=== PATIENT | male | born 1950 | race Caucasian/White ===

== ENCOUNTER 2016-10-28 07:53 | Inpatient (IN) | payer MEDICARE, BC ==
[~2016-10-28] VITALS: Ht 172.7 cm; Wt 93.0 kg
[2016-10-28] VITALS (17 sets, daily range): BP systolic 117–158; BP diastolic 76–104
[2016-10-28] MEDS ORDERED: ALLO300T PO (09:20)
[2016-10-28] MEDS ORDERED: OMEP20TA8 PO (09:22)
[2016-10-28] MEDS ORDERED: RIVA20TA2 PO (09:22)
[2016-10-28] MEDS ORDERED: NALO4SPR NS (09:22)
[2016-10-28] MEDS ORDERED: CARV12.52 PO (09:23)
[2016-10-28] MEDS ORDERED: ALPR0.5T6 PO (09:23)
[2016-10-28] MEDS ORDERED: INDO50CA PO (09:24)
[2016-10-28] MEDS ORDERED: OXYC-328 PO (09:25)
[2016-10-28 09:37] LABS: BASO % 1 % (0-3); EOS # 0.1 x10^3/uL (0.0-0.7); EOS % 2 % (0-3); HEMATOCRIT 43.6 % (39.0-53.0); LYMPH # 1.1 x10^3/uL (1.0-4.8); LYMPH % 32 % (24-48); MEAN CORPUSCULAR HEMOGLOBIN 34 pg (25-35); MEAN CORPUSCULAR HGB CONC 35 g/dL (31-37); MEAN CORPUSCULAR VOLUME 98 fL (79-100); MONO # 0.6 x10^3/uL (0.0-1.1); MONO % 18 % (0-9); NEUT # 1.6 x10^3uL (1.8-7.7); NEUT % 47 % (31-73); PLATELET COUNT 112 x10^3/uL (140-400); RED BLOOD COUNT 4.45 x10^6/uL (4.30-5.70); RED CELL DISTRIBUTION WIDTH 14.6 % (11.5-14.5); WHITE BLOOD COUNT 3.3 x10^3/uL (4.0-11.0)
[2016-10-28] MEDS: SOTALOL 120 MG PO SCH ×2 (09:37→21:01)
[2016-10-28 09:50] LABS: CALCIUM 8.4 mg/dL (8.5-10.1); CREATININE 1.2 mg/dL (0.7-1.3); GFR 60.2; POTASSIUM 4.5 mmol/L (3.5-5.1)
[2016-10-28] MEDS ORDERED: oxyCODONE/APAP 10/325 1 TAB TABLET PO SCH ×4 (11:00→17:00)
--- NOTE | 2016-10-28 12:22 | PDOC2 ---
ROCKY TORRES [employer] WORK[employer] 10/28/16 1222: CONSULT Date of Admission DATE: 10/28/16 TIME: 12:01 Reason for Consult: Persistent atrial fibrillation History of Present Illness This is a 66 year old male who presented for admission due to persistent atrial fibrillation and need to start sotalol. He has a history of aneurysmal dilatation of the ascending aorta, which measures 4.5 cm in diameter and mild enlargement of the aortic root, which measures 4.3 cm in diameter, paroxysmal atrial fibrillation, and hypertension. He was placed on Multaq in August for 4 weeks and Did not convert so was sent in for electrical cardioversion. It was successful at the hospital but at his return follow-up visit he was back in atrial fibrillation. He had been having increased amounts of alcohol and wanted to try to stop drinking and recheck his EKG in 1 month. He continued to be in atrial fibrillation and admission was planned to start sotalol. Last week he presented to the clinic with complaints of chest pain that were not related to activity. It was a sudden onset sensation that comes into the substernal area and then radiates up into his chest it does not go into his neck or into his arm. It is not associated with any shortness of breath, nausea , vomiting or diaphoresis. Nothing seems to make it better or worse and it lasts about 5 minutes and then spontaneously abates. In the past he has associated this pain with his shoulder and back pain. He underwent a nuclear stress test that showed normal perfusion. Past Medical History Hypertension: Y Valvular Heart Disease: Y Aneurysmal dilatation of the ascending aorta, which measures 4.5 cm in diameter and mild enlargement of the aortic root, which measures 4.3 cm in diameter Paroxysmal atrial fibrillation Surgical History Shoulder surgery procedure Back Surgery Family History - Family history of coronary artery disease, diabetes mellitus and cancer. Social History Occupation: Retired, Works part-time at a camp ground Marital status: Live alone or with others?: with others Number of children: 6 Diet: Regular Exercise level: Moderate Smoking Status: Former smoker (Notes: Quit 1971) Smoker (2 PPD) Tobacco-years of use: 3 Alcohol intake: Moderate (Notes: 24 pack a week) Caffeine intake: Occasional Allergies - PENICILLINS Medications allopurinol 300 mg tablet once daily ALPRAZolam 0.5 mg tablet PRN oxyMORphone ER 30 mg tablet,crush resistant,extended release 12 hr PRN Xarelto 20 mg tablet once daily Recently stopped - lisinopril, Coreg, Multaq, Lasix, and potassium. Review of systems-review of 10 organ systems is negative except for as in HPI. Physical Exam GENERAL: This is a well developed, well nourished male. No apparent distress. SKIN: Warm and dry with normal skin turgor. Negative for pallor. No lesions or rashes noted. EYES: Conjunctiva are clear. Extraocular movements are intact. No xanthelasma. HEAD AND NECK: Oral mucosa is moist. There is no cyanosis. Neck is supple. Jugular venous pressure is flat. Carotid pulses are 2/2 bilaterally. No carotid bruits. There is no obvious thyromegaly. HEART: Regular rate and irregular rhythm. Normal S1 and S2. No S3. No S4. + Diastolic murmur LUNGS: Effort is good. There is symmetric expansion bilaterally. Clear to auscultation bilaterally. No wheezes. No crackles. No rhonchi. ABDOMEN: Normal active bowel sounds. Soft. Nontender. EXTREMITIES: No clubbing. No cyanosis. edema right > left MUSCULOSKELETAL: No kyphosis. No scoliosis. No localized tenderness or stiffness. Gait appears normal. NEUROLOGIC: Alert and oriented times three. Cranial nerves III-XII are grossly intact. Good motor tone and strength in the upper and lower extremities bilaterally. PSYCHOLOGIC: This is a pleasant patient with a normal affect. Procedure Documentation LEXISCAN NUCLEAR STRESS TEST IMPRESSION (10/23/2016): Normal myocardial perfusion scan The summed stress score is one. Mild LV systolic dysfunction. Ejection fraction: 48%. There is no stress induced left ventricular dilatation or increase in lung to heart ratio. There was no stress induced chest pain. There was baseline atrial fibrillation that did not change with stress. No previous study available for comparison. CARDIOVERSION IMPRESSION (08/20/2016): Successful DC cardioversion from atrial fibrillation to normal sinus rhythm with a single 200 joule synchronized shock. ECHOCARDIOGRAM IMPRESSION (06/19/2016):. The patient was in atrial fibrillation with fairly rapid ventricular 100 beats per minute There is mild to moderate left ventricular systolic dysfunction with a visually estimated ejection fraction of 40%. Note ejection fraction calculation may be affected by atrial fibrillation The left ventricular diastolic function could not be determined on this study. The aortic root appears moderately dilated at 4.3 cm. The proximal ascending aorta appears moderately dilated at 4.5 cm. Compared to the report (images were not available for review) of the study dated 01/09/2016, the ejection fraction has decreased. EVENT MONITOR 06/20/2016: 1. Baseline atrial fibrillation with an average heart rate of 95 beats per minute, ranging from 60 to 195 beats per minute with rare ventricular ectopy as both isolated and couplets versus aberrant conduction of the atrial fibrillation. 2. There were 2 patient triggered events during which times the patient was in atrial fibrillation. 3. No symptoms appear to have been reported during the test. ECHOCARDIOGRAM IMPRESSION (01/09/2016):. The aortic root appears moderately dilated at 4.3 cm. The proximal ascending aorta appears moderately dilated at 4.4 cm. Compared to the report (images were not available for review) of the study dated 06/15/2015, there is no significant change. ECHOCARDIOGRAM IMPRESSION (06/15/2015):. The left ventricle is normal in size. There is mild to moderate concentric left ventricular hypertrophy. No significant regional wall motion abnormalities are identified. The left ventricular systolic function is normal with an estimated ejection fraction of 55-60%. There is evidence of impaired left ventricular relaxation suggestive of stage I diastolic dysfunction. The aortic root appears mildly dilated at 4.2 cm. The proximal ascending aorta appears moderately dilated at 4.4 cm. There is mild to moderate aortic regurgitation. The estimated pulmonary artery systolic pressure is normal at 21 mmHg. Compared to the report (images were not available for review) of the study dated 06/13/2014, there is no significant change. ECHOCARDIOGRAM IMPRESSION (06/13/2014): This is a technically difficult study due to poor image quality. The left ventricle is normal in size. There is normal left ventricular wall thickness. No significant regional wall motion abnormalities are identified. The left ventricular systolic function is normal with an estimated ejection fraction of 55%. There is evidence of decreased diastolic compliance of the left ventricle, consistent with mild left ventricular diastolic dysfunction. The aortic root appears mildly dilated at 4.2 cm. The proximal ascending aorta appears mildly dilated at 4.3 cm. There is mild aortic regurgitation. The estimated pulmonary artery systolic pressure is normal at 19 mmHg. Compared to the report (images were not available for review) of the study dated 06/07/2013, there is no significant change. ABDOMINAL AORTA / ILIAC IMAGING IMPRESSION (07/02/13). There is mild atherosclerotic plaquing of the abdominal aorta and the iliacs There is no evidence of abdominal aortic aneurysm or iliac artery aneurysm ECHOCARDIOGRAM IMPRESSION (06/07/2013):. 1. Normal left ventricular systolic function with a visually estimated ejection fraction of 55% to 60%. 2. Mild diastolic dysfunction with impaired relaxation. 3. There is borderline concentric left ventricular hypertrophy. 4. There is mild aortic regurgitation. 5. There is aneurysmal dilatation of the ascending aorta, which measures 4.4 cm in diameter. There is mild enlargement of the aortic root, which measures 4.2 cm in diameter. SUMMARY OF NUCLEAR STRESS TEST(10/23/11):. The patient did not complain of chest pain. Stress ECG: There were no significant stress induced ECG changes. Exercised for 9:14 minutes by Eric protocol. Valdez score was 9. Perfusion SPECT imaging revealed normal perfusion without evidence of infarction or ischemia. The ejection fraction was 51% and the wall motion was low normal. Compared to previous study on 09/18/10, there was no significant change. Assessment / Plan Atrial fibrillation, persistent - He stopped his Multaq last week. Will plan on changing Coreg to sotalol 120 mg twice a day and monitoring with serial EKGs. If he has not converted by Friday will plan to do electrical cardioversion prior to discharge. Systolic dysfunction - likely related to rapid atrial fibrillation. Plan to repeat limited echocardiogram as an outpatient once sinus rhythm is reestablished. Aneurysmal dilatation of the ascending aorta, which measures 4.5 cm in diameter by echocardiogram and measures 4.[address] scan the last several years. Stable aneurysm. We will continue to monitor by yearly CT and when he gets to 5 centimeters will plan for CTS evaluation. He should avoid heavy lifting, holding his breath, or Valsalva maneuver. Continue beta-jackson and aggressive blood pressure control Mild - Moderate Aortic regurgitation - Monitor blood pressure and continue current therapy. Essential Hypertension with Left ventricular hypertrophy. Controlled. recently his blood pressure has been running low and his lisinopril was stopped and his carvedilol was decreased. Multiple pulmonary nodules -- Being watched at [facility] with CT scans every 6 - 12 months. Recent DVT on Xarelto Obesity. Lifestyle modification with exercise, diet and weight loss recommended. Current Medications Current Medications Sotalol HCl (Betapace) 120 mg BID PO Last administered on 8/7/17at 09:37; Start 10/28/16 at 09:00 Oxycodone/ Acetaminophen (Percocet 10/325) 1.5 tab DAILY@0700,1100,1700 PO ; Start 10/28/16 at 17:00; Stop 10/28/16 at 17:00; Status DC Oxycodone/ Acetaminophen (Percocet 10/325) 1.5 tab DAILYBFRLUN PO ; Start at 11:30; Status UNV Oxycodone/ Acetaminophen (Percocet 10/325) 1 tab DAILY@0300,1600 PO ; Start 10/28 at 16:00 Oxycodone/ Acetaminophen (Percocet 10/325) 1.5 tab DAILYWSUP PO ; Start 10/28/16 at 17:00; Status UNV Oxycodone/ Acetaminophen (Percocet 10/325) 1 tab DAILY PO ; Start 10/29/16 at 03: 00; Status UNV Oxycodone/ Acetaminophen (Percocet 10/325) 1.5 tab DAILY@0700,1100,1700 PO Last administered on 10/28/16t 11:33; Start 10/28/16 at 11:00 Allopurinol (Zyloprim) 300 mg DAILY PO ; Start 10/29/16 at 09:00 Alprazolam (Xanax) 0.5 mg PRN Q8HRS PRN PO ANXIETY / AGITATION; Start 10/28/16 at 11:45 Pantoprazole Sodium (Protonix) 40 mg DAILYAC PO ; Start 10/29/16 at 07:30 Rivaroxaban (Xarelto) 20 mg DAILY PO ; Start 10/29/16 at 09:00 Active Scripts Active Reported Percocet 10-325 Mg Tablet (Oxycodone Hcl/Acetaminophen) 1 Each Tablet 1 Tab PO PRN Q8HRS PRN Indomethacin 50 Mg Capsule 50 Mg PO PRN DAILY PRN Alprazolam 0.5 Mg Tablet 0.5 Mg PO PRN Q8HRS PRN Xarelto (Rivaroxaban) 20 Mg Tablet 20 Mg PO DAILY Omeprazole 20 Mg Tablet.dr 20 Mg PO DAILY Narcan (Naloxone HCl) 4 Mg Mcneal 4 Mg NS Allopurinol 300 Mg Tablet 1 Tab PO DAILY Allergies: Coded Allergies: Penicillins (Verified Allergy, Unknown, 10/28/16) VITALS Vital Signs Date Time Temp Pulse Resp B/P (MAP) Pulse Ox O2 Delivery O2 Flow Rate FiO2 10/28/16 10:45 98.6 74 20 122/80 (94) 98 Room Air Labs Laboratory Tests Test 10/28/16 09:10 White Blood Count 3.3 x10^3/uL (4.0-11.0) Red Blood Count 4.45 x10^6/uL (4.30-5.70) Hemoglobin 15.0 g/dL (13.0-17.5) Hematocrit 43.6 % (39.0-53.0) Mean Corpuscular Volume 98 fL (79-100) Mean Corpuscular Hemoglobin 34 pg (25-35) Mean Corpuscular Hemoglobin Concent 35 g/dL (31-37) Red Cell Distribution Width 14.6 % (11.5-14.5) Platelet Count 112 x10^3/uL (140-400) Neutrophils (%) (Auto) 47 % (31-73) Lymphocytes (%) (Auto) 32 % (24-48) Monocytes (%) (Auto) 18 % (0-9) Eosinophils (%) (Auto) 2 % (0-3) Basophils (%) (Auto) 1 % (0-3) Neutrophils # (Auto) 1.6 x10^3uL (1.8-7.7) Lymphocytes # (Auto) 1.1 x10^3/uL (1.0-4.8) Monocytes # (Auto) 0.6 x10^3/uL (0.0-1.1) Eosinophils # (Auto) 0.1 x10^3/uL (0.0-0.7) Basophils # (Auto) 0.0 x10^3/uL (0.0-0.2) Sodium Level 140 mmol/L (136-145) Potassium Level 4.5 mmol/L (3.5-5.1) Chloride Level 104 mmol/L (98-107) Carbon Dioxide Level 29 mmol/L (21-32) Anion Gap 7 (6-14) Blood Urea Nitrogen 17 mg/dL (8-26) Creatinine 1.2 mg/dL (0.7-1.3) Estimated GFR (Cockcroft-Gault) 60.2 Glucose Level 100 mg/dL (70-99) Calcium Level 8.4 mg/dL (8.5-10.1) Creatine Kinase 149 U/L (39-308) Creatine Kinase MB (Mass) 2.6 ng/mL (0.0-3.6) Creatine Kinase MB Relative Index 1.7 % (0-4) Troponin I Quantitative < 0.017 ng/mL (0-0.055) SUNNY VICTORIA Jr, MD 10/28/16 1522: CONSULT Reason for Consult: Atrial fibrillation Chief Complaint Admission to start sotalol. Source: Patient History of Present Illness He is a 66-year-old male with a history of what seems to be asymptomatic persistent atrial fibrillation. He was treated previously placed on Multaq and then had a cardioversion. However, the atrial fibrillation recurred. Therefore , we elected to admit him to the hospital to start sotalol. We stopped his Multaq approximately 4 days ago. He has chronic intermittent chest pain. He describes this as both a sharp and a tight feeling in the center of his chest that occurs mainly with exertion. He denies radiation or associated symptoms. This is mild. This may last up to 15 minutes. If this starts when he is exerting himself, he just keeps moving on and ultimately the discomfort will resolve. This may have been getting slightly more frequent over the past several weeks. He has mild intermittent bilateral lower extremity edema. He denies dyspnea, paroxysmal nocturnal dyspnea, orthopnea, palpitations, lightheadedness or syncope. Allergies: Coded Allergies: Penicillins (Verified Allergy, Unknown, 10/28/16) Review of System Review of 10 organ systems is as per the history of present illness, otherwise negative. General: Alert, Oriented X3, Cooperative, No acute distress HEENT: Atraumatic, EOMI, Mucous membr. moist/pink Lungs: Clear to auscultation, Normal air movement Heart: Normal S1, Normal S2, Other (Irregularly irregular. 2/6 systolic ejection murmur.) Abdomen: Normal bowel sounds, Soft, No tenderness, No hepatospenomegaly Extremities: No clubbing, No cyanosis, No edema, Normal pulses Skin: No rashes, No breakdown, No significant lesion Neuro: Normal gait, Normal speech, Strength at 5/5 X4 ext, Normal tone, Cranial nerves 3-12 NL Psych/Mental Status: Mental status NL, Mood NL Assessment/Plan Atrial fibrillation, persistent. He is here today to start sotalol. We will stop the other beta-jackson since he will be starting on sotalol. We will continue his oral anticoagulant. We will monitor the QT interval. If he remains in atrial fibrillation on Friday, we may need to consider a cardioversion in. Cardiomyopathy. This is likely nonischemic and possibly related to his atrial fibrillation with previous rapid ventricular rate. Unfortunately, due to low blood pressures, we had to discontinue his beta-jackson and SINA-inhibitor. Once he is back in a sinus rhythm, we will see if we can reintroduce these medications. Essential hypertension. As above, we need to make some adjustments to his medication due to low blood pressures. We will see if this will improve after he is back in sinus rhythm. Thoracic aortic aneurysm. This is mild. This will need to be followed with serial imaging approximately once per year. Problems: ROCKY TORRES APRN Oct 28, 2016 12:22 SUNNY VICTORIA Jr, MD Oct 28, 2016 15:22
[2016-10-28] MEDS ORDERED: LORazepam 1 MG TABLET PO PRN ×2 (15:00)
[2016-10-28] MEDS: ALPRAZolam 0.5 MG TABLET PO PRN (16:20)
[2016-10-28] MEDS: oxyCODONE/APAP 10/325 1 TAB TABLET PO SCH ×2 (16:21→19:56)
[2016-10-29] VITALS (23 sets, daily range): BP systolic 119–169; BP diastolic 79–104
[2016-10-29] MEDS: oxyCODONE/APAP 10/325 1 TAB TABLET PO SCH ×5 (02:48→19:50)
[2016-10-29] MEDS ORDERED: oxyCODONE/APAP 10/325 1 TAB TABLET PO SCH (03:00)
[2016-10-29] MEDS ORDERED: RANI150C PO (03:57)
--- NOTE | 2016-10-29 05:11 | ACF ---
Admission Criteria Forms ATRIAL FIBRILLATION Clinical Indications for Admission to Inpatient Care (Place 'X' for any and all applicable criteria): Admission indicated for ANY ONE of the following(1)(2)(3)(4)(5) : [ ]I. Myocardial ischemia [ ]II. Dyspnea or hypoxemia [ ]III. Hemodynamic instability [ ]IV. Heart failure (e.g., pulmonary edema) (7) [ ]V. New-onset (less than 48 hours) atrial fibrillation with high risk for causing complications secondary to comorbidities (eg, symptomatic heart failure ) [ ]. Altered mental status [ ]VII. Syncope [ ]VIII. Patient has implantable cardioverter defibrillator that has fired more than once within past 24hr or needs immediate adjustment of settings that cannot be done other than in inpatient setting. (8) [ ]IX. Suspected accessory pathway (e.g., Xujic-Vomnbjjis-Adgen syndrome) on ECG [ ]X. Recent systemic thromboembolism (eg, stroke) [ ]XI. Medication toxicity (e.g., digitalis) causing arrhythmia(9) [ ]XII. Underlying medical condition that necessitates inpatient care (e.g., thyrotoxicosis, pneumonia) (10) [x]XIII. Continuous ECG monitoring is required for condition causing arrhythmia (e.g., severe hyperkalemia, hypokalemia, acid-base disturbance).(11)(12)(13) [ ]XIV. Initiation of antiarrhythmic drug therapy is needed in patient at high risk of adverse effects as indicated by ANY ONE of the following: [ ]a) Significant structural heart disease (e.g., reduced ejection fraction, congenital heart disease, valvular heart disease) [ ]b) Prolonged QT interval [ ]c) Underlying sinus node or atrioventricular conduction disturbances [ ]d) Need for treatment with antiarrhythmic drugs that have significant proarrhythmic potential (e.g., dofetilide, sotalol, procainamide) [ ]e) Patient whose sinus rhythm has never been observed on ECG [ ]XV. Intolerable symptoms despite optimal outpatient treatment [ ]XVI. Elective or urgent cardioversion that cannot be performed on outpatient basis or during observation care. [A] (Use also Atrial Fibrillation: Observation Care ) as appropriate.(14) [ ]XVII.Contraindications and/or Inappropriate clinical situations for Observational Care in patients with Atrial Fibrillation, when ANY ONE of the following is required: [ ]a) Patient with High risk of cardiac embolism (e.g, patients with previous cardiac embolism, LVEF < 40%, age >75 and patients with prosthetic valve) 18 [ ]b) Patient with Moderate risk including DM patient, CAD and patient aged 65-75 18 [ ]c) Patient with any change in cardiac biomarker especially troponin should be managed as high risk in an inpatient setting 19 [ ]d) Physician judgement irrespective of ECG and other diagnostic findings 20 [ ]XVIII.General contraindications and/or Inappropriate clinical situations for Observational Care in patients with Atrial Fibrillation, when ANY ONE of the following is required: [ ]a) Prediction of prolongation of LOS based on ANY ONE of the following may be considered as a contraindication for observational care 2, 3, 4, 5, 6, 7, 8, 9, 10, 11 [ ]i) Age > 65 yrs. [ ]ii) Patient arriving by ambulance [ ]iii) Patient with high acuity [ ]iv) Patient requiring vital sign monitoring [ ]v) Patient on IV medication [ ]b) Systolic blood pressures 180mmHg 3,12 [ ]c) Patient with altered mental status including delirium and other alteration of consciousness3 [ ]d) Patient whose discharge disposition will be to a fpc home or rehabilitation home should not be managed in Emergency Department Observation Unit. CMS rule requires 3 days hospital stay before such placement.3,13 [ ]e) Patient with failure to thrive due to broad array of etiologies 3,16,17 [ ]f) Inability to ambulate 3,14 Extended stay beyond goal length of stay may be needed for (1)(25)(26): [ ]a) Unstable comorbidities [ ]b) Persistently uncontrolled atrial fibrillation or other arrhythmias [ ]c) Acute thromboembolic event (e.g., stroke, limb ischemia) [ ]d) Need for inpatient attainment of full anticoagulation The original [employer] content created by [employer] has been revised. The portions of the content which have been revised are identified through the use of italic text or in bold, and [employer] [facility] [employer] has neither reviewed nor approved the modified material. All other unmodified content is copyright [employer]. Please see references footnoted in the original [employer] [facility] edition 2016 Admission Criteria Met?: Yes GENOVEVA PINZON Oct 29, 2016 05:11
[2016-10-29] MEDS: PANTOPRAZOLE 40 MG TABLET. PO SCH (07:20)
[2016-10-29] MEDS: RIVAROXABAN 10 MG TABLET. PO SCH (08:07)
[2016-10-29] MEDS: ALLOPURINOL 300 MG TABLET. PO SCH (08:07)
[2016-10-29] MEDS: SOTALOL 120 MG PO SCH ×2 (08:07→21:22)
[2016-10-29 08:59] LABS: ALBUMIN 3.6 g/dL (3.4-5.0); ALBUMIN/GLOBULIN RATIO 1.1 (1.0-1.7); CALCIUM 8.6 mg/dL (8.5-10.1); CREATININE 1.2 mg/dL (0.7-1.3); GFR 60.2; POTASSIUM 4.2 mmol/L (3.5-5.1); TOTAL BILIRUBIN 1.3 mg/dL (0.2-1.0); TOTAL PROTEIN 6.8 g/dL (6.4-8.2)
--- NOTE | 2016-10-29 12:56 | PDOC ---
ROCKY TORRES [employer]CH[employer]IC 10/29/16 1255: PROGRESS NOTES Assessment We are seeing the patient for atrial fibrillation Atrial fibrillation, persistent - He is tolerating the sotalol 120 twice a day well. His QTC remains normal. He has yet to convert so we will plan to make him NPO after midnight and do electrical cardioversion tomorrow under conscious sedation. he is on Xarelto for anticoagulation. Systolic dysfunction - likely related to rapid atrial fibrillation. Plan to repeat limited echocardiogram as an outpatient once sinus rhythm is reestablished. Essential Hypertension with Left ventricular hypertrophy. Controlled. recently his blood pressure has been running low and his lisinopril was stopped and his carvedilol was decreased. Continue to monitor. Aneurysmal dilatation of the ascending aorta, which measures 4.5 cm in diameter by echocardiogram and measures 4.[address] scan the last several years. Stable aneurysm. We will continue to monitor by yearly CT and when he gets to 5 centimeters will plan for CTS evaluation. He should avoid heavy lifting, holding his breath, or Valsalva maneuver. Continue beta-jackson and aggressive blood pressure control Mild - Moderate Aortic regurgitation - Monitor blood pressure and continue current therapy. Problems: Subjective We discussed treatment options if the sotalol does not work. He denies any problems with chest pain, shortness of breath or palpitations. Objective Vital Signs Date Time Temp Pulse Resp B/P (MAP) Pulse Ox O2 Delivery O2 Flow Rate FiO2 10/29/16 11:48 68 18 128/90 (103) 96 Room Air 10/29/16 10:31 97.8 Intake and Output 10/29/16 07:00 Intake Total 1750 ml Output Total 2375 ml Balance -625 ml Intake Oral 1750 ml Output Urine Total 2375 ml # Voids 1 Abdomen: Normal bowel sounds, Soft, No tenderness Heart: Regular rate, Normal S1, Normal S2 (irregular rhythm ) Extremities: No edema, Normal pulses General: Oriented X3 HEENT: EOMI Lungs: Clear to auscultation Psych/Mental Status: Mental status NL, Mood NL Review of Relevant I have reviewed the following items lisbet (where applicable) has been applied. Labs Laboratory Tests Test 10/28/16 09:10 10/29/16 08:37 White Blood Count 3.3 x10^3/uL (4.0-11.0) Red Blood Count 4.45 x10^6/uL (4.30-5.70) Hemoglobin 15.0 g/dL (13.0-17.5) Hematocrit 43.6 % (39.0-53.0) Mean Corpuscular Volume 98 fL (79-100) Mean Corpuscular Hemoglobin 34 pg (25-35) Mean Corpuscular Hemoglobin Concent 35 g/dL (31-37) Red Cell Distribution Width 14.6 % (11.5-14.5) Platelet Count 112 x10^3/uL (140-400) Neutrophils (%) (Auto) 47 % (31-73) Lymphocytes (%) (Auto) 32 % (24-48) Monocytes (%) (Auto) 18 % (0-9) Eosinophils (%) (Auto) 2 % (0-3) Basophils (%) (Auto) 1 % (0-3) Neutrophils # (Auto) 1.6 x10^3uL (1.8-7.7) Lymphocytes # (Auto) 1.1 x10^3/uL (1.0-4.8) Monocytes # (Auto) 0.6 x10^3/uL (0.0-1.1) Eosinophils # (Auto) 0.1 x10^3/uL (0.0-0.7) Basophils # (Auto) 0.0 x10^3/uL (0.0-0.2) Nasal Screen MRSA (PCR) Negative (Negative) Sodium Level 140 mmol/L (136-145) 141 mmol/L (136-145) Potassium Level 4.5 mmol/L (3.5-5.1) 4.2 mmol/L (3.5-5.1) Chloride Level 104 mmol/L (98-107) 104 mmol/L (98-107) Carbon Dioxide Level 29 mmol/L (21-32) 32 mmol/L (21-32) Anion Gap 7 (6-14) 5 (6-14) Blood Urea Nitrogen 17 mg/dL (8-26) 14 mg/dL (8-26) Creatinine 1.2 mg/dL (0.7-1.3) 1.2 mg/dL (0.7-1.3) Estimated GFR (Cockcroft-Gault) 60.2 60.2 Glucose Level 100 mg/dL (70-99) 161 mg/dL (70-99) Calcium Level 8.4 mg/dL (8.5-10.1) 8.6 mg/dL (8.5-10.1) Creatine Kinase 149 U/L (39-308) Creatine Kinase MB (Mass) 2.6 ng/mL (0.0-3.6) Creatine Kinase MB Relative Index 1.7 % (0-4) Troponin I Quantitative < 0.017 ng/mL (0-0.055) BUN/Creatinine Ratio 12 (6-20) Total Bilirubin 1.3 mg/dL (0.2-1.0) Aspartate Amino Transf (AST/SGOT) 24 U/L (15-37) Alanine Aminotransferase (ALT/SGPT) 23 U/L (16-63) Alkaline Phosphatase 87 U/L (46-116) Total Protein 6.8 g/dL (6.4-8.2) Albumin 3.6 g/dL (3.4-5.0) Albumin/Globulin Ratio 1.1 (1.0-1.7) Medications Current Medications Sotalol HCl (Betapace) 120 mg BID PO Last administered on 10/29/16 08:07; Start 10/28/16 at 09:00 Oxycodone/ Acetaminophen (Percocet 10/325) 1.5 tab DAILY@0700,1100,1700 PO ; Start 10/28/16 at 17:00; Stop 10/28/16 at 17:00; Status DC Oxycodone/ Acetaminophen (Percocet 10/325) 1.5 tab DAILYBFRLUN PO ; Start at 11:30; Status UNV Oxycodone/ Acetaminophen (Percocet 10/325) 1 tab DAILY@0300,1600 PO Last administered on 10/29/16 02:48; Start 10/28/16 at 16:00 Oxycodone/ Acetaminophen (Percocet 10/325) 1.5 tab DAILYWSUP PO ; Start 10/28/16 at 17:00; Status UNV Oxycodone/ Acetaminophen (Percocet 10/325) 1 tab DAILY PO ; Start 10/29/16 at 03: 00; Status UNV Oxycodone/ Acetaminophen (Percocet 10/325) 1.5 tab DAILY@0700,1100,1700 PO Last administered on 10/28/16 11:33; Start 10/28/16 at 11:00; Stop 10/28/16 at 16: 17; Status DC Allopurinol (Zyloprim) 300 mg DAILY PO Last administered on 10/29/16 08:07; Start 10/29/16 at 09:00 Alprazolam (Xanax) 0.5 mg PRN Q8HRS PRN PO ANXIETY / AGITATION Last administered on 10/28/16 16:20; Start 10/28/16 at 11:45 Pantoprazole Sodium (Protonix) 40 mg DAILYAC PO Last administered on 10/29/16 07:20; Start 10/29/16 at 07:30 Rivaroxaban (Xarelto) 20 mg DAILY PO Last administered on 10/29/16 08:07; Start 10/29/16 at 09:00 Lorazepam (Ativan) 4 mg PRN Q1HR PRN PO For CIWA 8-14; Start 10/28/16 at 15:00 Lorazepam (Ativan) 8 mg PRN Q1HR PRN PO For CIWA 15 or greater; Start 10/28/16 at 15:00 Oxycodone/ Acetaminophen (Percocet 10/325) 1.5 tab DAILY@0700,1100,2000 PO Last administered on 10/29/16 11:07; Start 10/28/16 at 20:00 Active Scripts Active Reported Ranitidine Hcl 150 Mg Capsule 150 Mg PO BID Percocet 10-325 Mg Tablet (Oxycodone Hcl/Acetaminophen) 1 Each Tablet 1 Tab PO PRN Q8HRS PRN Indomethacin 50 Mg Capsule 50 Mg PO PRN DAILY PRN Alprazolam 0.5 Mg Tablet 0.5 Mg PO PRN Q8HRS PRN Xarelto (Rivaroxaban) 20 Mg Tablet 20 Mg PO DAILY Narcan (Naloxone HCl) 4 Mg [place] 4 Mg NS Allopurinol 300 Mg Tablet 1 Tab PO DAILY Vitals/I & O Vital Sign - Last 24 Hours 10/28/16 10/28/16 10/28/16 10/28/16 13:47 14:53 16:13 16:54 Pulse 78 72 78 82 Resp 18 18 18 18 B/P (MAP) 132/86 (101) 117/84 (95) 150/89 (109) 145/97 (113) Pulse Ox 97 97 98 96 O2 Delivery Room Air Room Air Room Air Room Air 10/28/16 10/28/16 10/28/16 10/28/16 17:50 19:25 20:10 21:00 Temp 97.7 Pulse 83 73 73 79 Resp 18 16 22 13 B/P (MAP) 122/77 (92) 144/95 (111) 153/90 (111) 148/98 (115) Pulse Ox 98 99 98 98 O2 Delivery Room Air Room Air Room Air Room Air 10/28/16 10/28/16 10/28/16 10/28/16 21:01 21:53 22:54 23:53 Pulse 75 78 77 75 Resp 12 15 17 B/P (MAP) 148/98 158/104 (122) 148/104 (119) 142/89 (106) Pulse Ox 99 96 98 O2 Delivery Room Air Room Air Room Air 10/29/16 10/29/16 10/29/16 10/29/16 00:46 02:42 02:54 03:44 Pulse 76 75 80 83 Resp 14 16 19 18 B/P (MAP) 144/96 (112) 169/98 (121) 150/99 (116) 136/87 (103) Pulse Ox 98 98 99 98 O2 Delivery Room Air Room Air Room Air Room Air 10/29/16 10/29/16 10/29/16 10/29/16 05:07 05:54 07:07 08:04 Temp 97.5 97.5 Pulse 75 73 73 76 Resp 17 12 18 B/P (MAP) 145/86 (105) 154/93 (113) 146/90 (108) 153/104 (120) Pulse Ox 98 100 100 100 O2 Delivery Room Air Room Air 10/29/16 10/29/16 10/29/16 10/29/16 08:07 09:11 09:47 10:31 Temp 97.8 Pulse 76 77 81 Resp 18 18 B/P (MAP) 153/104 134/80 (98) 123/80 (94) Pulse Ox 96 97 O2 Delivery Room Air Room Air 10/29/16 11:48 Pulse 68 Resp 18 B/P (MAP) 128/90 (103) Pulse Ox 96 O2 Delivery Room Air Intake and Output 10/28/16 10/28/16 10/29/16 15:00 23:00 07:00 Intake Total 300 ml 1050 ml 400 ml Output Total 300 ml 625 ml 1450 ml Balance 0 ml 425 ml -1050 ml SUNNY VICTORIA Jr, MD 10/30/16 0918: PROGRESS NOTES Assessment The patient was seen by Rocky Torres APRN and I have reviewed her findings and plan and agree with above. Due to staffing constraints, we did not have an attending available to see this patient. Problems: ROCKY TORRES APRN Oct 29, 2016 12:55 SUNNY VICTORIA Jr, MD Oct 30, 2016 09:18
--- NOTE | 2016-10-29 14:21 | HP ---
ADMIT DATE: 10/28/2016 REASON FOR ADMISSION: Persistent atrial fibrillation. HISTORY OF PRESENT ILLNESS: This is a 66-year-old male who was admitted to the Cardiology Service of Dr. John Vogel. He has been found to have persistent atrial fibrillation and is being admitted for sotalol therapy, which requires admission. PAST MEDICAL HISTORY: 1. Aortic aneurysm 4.5 cm. 2. Paroxysmal atrial fibrillation. He has had an electrical cardioversion, which was successful, but he reverted back to atrial fibrillation. 3. Hypertension. 4. Aortic regurgitation. 5. Multiple lung nodules. 6. 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 PAST SURGICAL HISTORY: Multiple shoulder surgeries, neck surgery, back surgery. FAMILY HISTORY: Both parents had heart trouble. Father had strokes. Mother has an aneurysm. HABITS: Former smoker, quit in 1970. He used to smoke 2 packs per day. Moderate 4-5 beers a day alcohol intake. REVIEW OF SYSTEMS: Had been having problems with hypotension and his Coreg was cut in half. Has had some left-sided chest pain in the past. Some fluttering in his chest occasionally. No fever. No sore throat. No shortness of breath. Chronic pain in his neck and back. HOME MEDICATIONS: Reviewed and are available on the MAR. ALLERGIES: PENICILLIN. OBJECTIVE: VITAL SIGNS: Blood pressure 134/80, pulse 77, respirations 18, pulse ox 96% on room air. Height 68 inches, weight 208.13 pounds. GENERAL: A 66-year-old, in no acute distress. HEENT: Hearing is normal. His eyes are clear. His nose is patent. His throat was clear. NECK: Supple, could not appreciate any carotid bruits. LUNGS: Clear to auscultation. CARDIOVASCULAR: Regular rhythm and rate without murmur. ABDOMEN: Soft, bowel sounds positive, nontender. EXTREMITIES: Without edema. He has hemosiderin deposits on both legs consistent with some venous insufficiency. NEUROLOGIC: Intact. LABORATORY DATA: WBC is 3.3, platelet count 112,000. He had a total bilirubin of 1.3 this morning, it was not checked yesterday. AST, ALT and alkaline phosphatase are normal. EKG shows AFib with RVR with some improvement in his pulse which is about 90 when I checked it. ASSESSMENT: 1. Atrial fibrillation, persistent, tolerating sotalol, has not converted as of yet. Cardiology is considering a cardioversion under conscious sedation. 2. Deep venous thrombosis prophylaxis, is on Xarelto. 3. Systolic dysfunction, likely related to rapid atrial fibrillation. Echocardiogram has been ordered. 4. Aneurysmal dilatation of the ascending aorta. 5. Moderate aortic regurgitation. 6. Essential hypertension with LVH. 7. Isolated mild elevated hyperbilirubinemia, questionable etiology. 8. Mild thrombocytopenia. 9. Daily alcohol intake. PLAN: Following along with Cardiology. Discussed alcohol and pain medication interaction. He is on the CIWA protocol. The blood sugar of 161 was post-breakfast, we will continue to monitor. DANA SINGER DO DR: GUNNER/clare JOB#: [id number] / [id number]
[2016-10-29] MEDS: ALPRAZolam 0.5 MG TABLET PO PRN (16:15)
[2016-10-29] MEDS ORDERED: MIDAZOLAM HCL 5 MG/5 ML VIAL IV PRN (18:15)
[2016-10-30] VITALS (23 sets, daily range): BP systolic 120–160; BP diastolic 87–107
[2016-10-30] MEDS: oxyCODONE/APAP 10/325 1 TAB TABLET PO SCH ×3 (02:57→11:00)
[2016-10-30 06:13] LABS: BASO % 0 % (0-3); EOS # 0.1 x10^3/uL (0.0-0.7); EOS % 2 % (0-3); HEMATOCRIT 46.2 % (39.0-53.0); LYMPH # 1.2 x10^3/uL (1.0-4.8); LYMPH % 33 % (24-48); MEAN CORPUSCULAR HEMOGLOBIN 34 pg (25-35); MEAN CORPUSCULAR HGB CONC 35 g/dL (31-37); MEAN CORPUSCULAR VOLUME 98 fL (79-100); MONO # 0.5 x10^3/uL (0.0-1.1); MONO % 13 % (0-9); NEUT # 1.9 x10^3uL (1.8-7.7); NEUT % 52 % (31-73); PLATELET COUNT 106 x10^3/uL (140-400); RED CELL DISTRIBUTION WIDTH 14.2 % (11.5-14.5); WHITE BLOOD COUNT 3.7 x10^3/uL (4.0-11.0)
[2016-10-30 06:15] LABS: ALBUMIN 3.4 g/dL (3.4-5.0); ALBUMIN/GLOBULIN RATIO 1.1 (1.0-1.7); CALCIUM 8.7 mg/dL (8.5-10.1); CREATININE 1.1 mg/dL (0.7-1.3); GFR 66.6; MAGNESIUM 1.9 mg/dL (1.8-2.4); TOTAL BILIRUBIN 1.1 mg/dL (0.2-1.0); TOTAL PROTEIN 6.6 g/dL (6.4-8.2)
[2016-10-30] MEDS ORDERED: fentaNYL PF 100 MCG/2 ML VIAL IV ONE ×2 (08:15→10:25)
[2016-10-30] MEDS: RIVAROXABAN 10 MG TABLET. PO SCH (08:21)
[2016-10-30] MEDS: SOTALOL 120 MG PO SCH (08:22)
[2016-10-30] MEDS: PANTOPRAZOLE 40 MG TABLET. PO SCH (08:22)
[2016-10-30] MEDS: ALLOPURINOL 300 MG TABLET. PO SCH (09:00)
[2016-10-30] MEDS ORDERED: MIDAZOLAM HCL 2 MG/2 ML VIAL. IV ONE (10:25)
[2016-10-30] MEDS ORDERED: MIDAZOLAM HCL 5 MG/5 ML VIAL IV ONE (10:25)
[2016-10-30] MEDS ORDERED: CARV12.5 PO (11:08)
--- NOTE | 2016-10-30 11:17 | PDOC3 ---
Discharge Summary Visit Information Date of Admission: Oct 28, 2016 Date of Discharge: Oct 30, 2016 Final Diagnosis ASSESSMENT: 1. Atrial fibrillation, persistent, SOTOLOL DID NOT CONVERT TO SINUS RHYTHM 2. Deep venous thrombosis prophylaxis, is on Xarelto. 3. Systolic dysfunction, likely related to rapid atrial fibrillation. Echocardiogram has been ordered. 4. Aneurysmal dilatation of the ascending aorta. 5. Moderate aortic regurgitation. 6. Essential hypertension with LVH. 7. Isolated mild elevated hyperbilirubinemia, RESOLVED 8. Mild thrombocytopenia. 9. Daily alcohol intake. 10. FAILED [id number]. CHRONIC PAIN 12. CHRONIC USE OF NARCOTICS Problems: Brief Hospital Course Allergies Allergies Coded Allergies Type Severity Reaction Last Updated Verified Penicillins Allergy Unknown 10/28/16 Yes Vital Signs Vital Signs Date Time Temp Pulse Resp B/P (MAP) Pulse Ox O2 Delivery O2 Flow Rate FiO2 10/30/16 10:44 80 20 124/97 (106) 99 Nasal Cannula 2.0 10/30/16 08:50 97.6 Lab Results Laboratory Tests Test 10/29/16 08:37 10/30/16 05:40 Sodium Level 141 mmol/L (136-145) 141 mmol/L (136-145) Potassium Level 4.2 mmol/L (3.5-5.1) 4.0 mmol/L (3.5-5.1) Chloride Level 104 mmol/L (98-107) 106 mmol/L (98-107) Carbon Dioxide Level 32 mmol/L (21-32) 30 mmol/L (21-32) Anion Gap 5 (6-14) 5 (6-14) Blood Urea Nitrogen 14 mg/dL (8-26) 14 mg/dL (8-26) Creatinine 1.2 mg/dL (0.7-1.3) 1.1 mg/dL (0.7-1.3) Estimated GFR (Cockcroft-Gault) 60.2 66.6 BUN/Creatinine Ratio 12 (6-20) 13 (6-20) Glucose Level 161 mg/dL (70-99) 94 mg/dL (70-99) Calcium Level 8.6 mg/dL (8.5-10.1) 8.7 mg/dL (8.5-10.1) Total Bilirubin 1.3 mg/dL (0.2-1.0) 1.1 mg/dL (0.2-1.0) Aspartate Amino Transf (AST/SGOT) 24 U/L (15-37) 25 U/L (15-37) Alanine Aminotransferase (ALT/SGPT) 23 U/L (16-63) 23 U/L (16-63) Alkaline Phosphatase 87 U/L (46-116) 81 U/L (46-116) Total Protein 6.8 g/dL (6.4-8.2) 6.6 g/dL (6.4-8.2) Albumin 3.6 g/dL (3.4-5.0) 3.4 g/dL (3.4-5.0) Albumin/Globulin Ratio 1.1 (1.0-1.7) 1.1 (1.0-1.7) White Blood Count 3.7 x10^3/uL (4.0-11.0) Red Blood Count 4.70 x10^6/uL (4.30-5.70) Hemoglobin 16.0 g/dL (13.0-17.5) Hematocrit 46.2 % (39.0-53.0) Mean Corpuscular Volume 98 fL (79-100) Mean Corpuscular Hemoglobin 34 pg (25-35) Mean Corpuscular Hemoglobin Concent 35 g/dL (31-37) Red Cell Distribution Width 14.2 % (11.5-14.5) Platelet Count 106 x10^3/uL (140-400) Neutrophils (%) (Auto) 52 % (31-73) Lymphocytes (%) (Auto) 33 % (24-48) Monocytes (%) (Auto) 13 % (0-9) Eosinophils (%) (Auto) 2 % (0-3) Basophils (%) (Auto) 0 % (0-3) Neutrophils # (Auto) 1.9 x10^3uL (1.8-7.7) Lymphocytes # (Auto) 1.2 x10^3/uL (1.0-4.8) Monocytes # (Auto) 0.5 x10^3/uL (0.0-1.1) Eosinophils # (Auto) 0.1 x10^3/uL (0.0-0.7) Basophils # (Auto) 0.0 x10^3/uL (0.0-0.2) Magnesium Level 1.9 mg/dL (1.8-2.4) Brief Hospital Course Mr. Kaba is a 66 old MALE WITH PERSISTENT ATRIAL FIBRILLATION WHO WAS ADMITTED FOR SOTOLOL INITIATION BY DR. VICTORIA, [employer]. HE DID NOT CONVERT. A CARDIOVERSION WAS DONE ON 10/30 AND HE BRIEFLY WENT INTO SINUS RHYTHM BUT AFTER A SHORT TIME WENT BACK INTO A FIB. HE WAS STABLE THROUGHOUT THE PROCEDURE AND THE HOSPITALIZATION. HE WILL BE DISCHARGED BACK ON HIS COREG AND TO BE REEVALUATED FOR ABLATION BY HIS OWN [employer]. THIS WAS ALL DISCUSSED WITH HIM PRIOR TO DISCHARGE. Discharge Information Condition at Discharge: Comment (UNCHANGED A FIB-RATE SLOWER) Follow Up: Weeks (TO SEE [employer] C[employer] SERVICE IN THE NEXT WEEK OR TWO) Disposition/Orders: D/C to Home Dischare Medications Current Medications--SEE LIST ON [address]. WILL RESUME COREG. Active Scripts Active Reported Ranitidine Hcl 150 Mg Capsule 150 Mg PO BID Percocet 10-325 Mg Tablet (Oxycodone Hcl/Acetaminophen) 1 Each Tablet 1 Tab PO PRN Q8HRS PRN Indomethacin 50 Mg Capsule 50 Mg PO PRN DAILY PRN Alprazolam 0.5 Mg Tablet 0.5 Mg PO PRN Q8HRS PRN Xarelto (Rivaroxaban) 20 Mg Tablet 20 Mg PO DAILY Narcan (Naloxone HCl) 4 Mg [place] 4 Mg NS Allopurinol 300 Mg Tablet 1 Tab PO DAILY Patient Instructions Patient Instuctions WILL NEED ABLATION IN THE NEAR FUTURE HAS FAILED CARDIOVERSION. DANA SINGER DO Oct 30, 2016 11:16
--- NOTE | 2016-10-30 13:17 | PDOC ---
PROGRESS NOTES Assessment Persistent atrial fibrillation. This morning he remained in atrial fibrillation after 5 doses of sotalol. Therefore, I had him undergo cardioversion. He did convert to sinus rhythm. However, within less than 1 minute he reverted back to atrial fibrillation. As such, he has now failed sotalol and Multaq. I will discontinue the sotalol. We will continue Xarelto for stroke prevention. The patient can be discharged home. We will arrange for an outpatient electrophysiology consultation at our main office for consideration of an atrial fibrillation ablation. Cardiomyopathy. Likely nonischemic. This may be related to the atrial fibrillation. Once we get him back into a sinus rhythm, we will plan on a follow-up echocardiogram. Essential hypertension. We previously stopped his lisinopril and carvedilol so that we could give him the sotalol. Since I will stop the sotalol, we will place him back on the carvedilol. We will monitor his blood pressure as an outpatient and make any additional adjustments as needed. Thoracic aortic aneurysm. This is mild. This will need to be followed with serial echocardiograms. Aortic regurgitation, [id number]. This will also need to be followed with serial echocardiograms. Disposition. At this point time, the patient can be discharged home from a cardiac standpoint. We will have him follow up in a [facility] office in 1 week. Problems: Subjective We are seeing him for atrial fibrillation. S: He denies chest pain, dyspnea, palpitations, syncope or lower extremity edema. Objective Vital Signs Date Time Temp Pulse Resp B/P (MAP) Pulse Ox O2 Delivery O2 Flow Rate FiO2 10/30/16 10:44 80 20 124/97 (106) 99 Nasal Cannula 2.0 10/30/16 08:50 97.6 Intake and Output 10/30/16 07:00 Intake Total 1115 ml Output Total 3000 ml Balance -1885 ml Intake Oral 1115 ml Output Urine Total 3000 ml # Voids 1 # Bowel Movements 1 Abdomen: Normal bowel sounds, Soft, No tenderness, No hepatospenomegaly Heart: Regular rate, Normal S1, Normal S2, Other (Irregularly irregular. 2/6 systolic ejection murmur.) Extremities: No clubbing, No cyanosis, No edema, Normal pulses General: Alert, Oriented X3, Cooperative, No acute distress HEENT: Atraumatic, EOMI, Mucous membr. moist/pink Lungs: Clear to auscultation, Normal air movement Neck: No JVD, +2 carotid pulse wo bruit Neuro: Normal speech, Strength at 5/5 X4 ext, Normal tone, Cranial nerves 3-12 NL Psych/Mental Status: Mental status NL, Mood NL Skin: No rashes, No breakdown, No significant lesion Review of Relevant I have reviewed the following items lisbet (where applicable) has been applied. Labs Laboratory Tests Test 10/29/16 08:37 10/30/16 05:40 Sodium Level 141 mmol/L (136-145) 141 mmol/L (136-145) Potassium Level 4.2 mmol/L (3.5-5.1) 4.0 mmol/L (3.5-5.1) Chloride Level 104 mmol/L (98-107) 106 mmol/L (98-107) Carbon Dioxide Level 32 mmol/L (21-32) 30 mmol/L (21-32) Anion Gap 5 (6-14) 5 (6-14) Blood Urea Nitrogen 14 mg/dL (8-26) 14 mg/dL (8-26) Creatinine 1.2 mg/dL (0.7-1.3) 1.1 mg/dL (0.7-1.3) Estimated GFR (Cockcroft-Gault) 60.2 66.6 BUN/Creatinine Ratio 12 (6-20) 13 (6-20) Glucose Level 161 mg/dL (70-99) 94 mg/dL (70-99) Calcium Level 8.6 mg/dL (8.5-10.1) 8.7 mg/dL (8.5-10.1) Total Bilirubin 1.3 mg/dL (0.2-1.0) 1.1 mg/dL (0.2-1.0) Aspartate Amino Transf (AST/SGOT) 24 U/L (15-37) 25 U/L (15-37) Alanine Aminotransferase (ALT/SGPT) 23 U/L (16-63) 23 U/L (16-63) Alkaline Phosphatase 87 U/L (46-116) 81 U/L (46-116) Total Protein 6.8 g/dL (6.4-8.2) 6.6 g/dL (6.4-8.2) Albumin 3.6 g/dL (3.4-5.0) 3.4 g/dL (3.4-5.0) Albumin/Globulin Ratio 1.1 (1.0-1.7) 1.1 (1.0-1.7) White Blood Count 3.7 x10^3/uL (4.0-11.0) Red Blood Count 4.70 x10^6/uL (4.30-5.70) Hemoglobin 16.0 g/dL (13.0-17.5) Hematocrit 46.2 % (39.0-53.0) Mean Corpuscular Volume 98 fL (79-100) Mean Corpuscular Hemoglobin 34 pg (25-35) Mean Corpuscular Hemoglobin Concent 35 g/dL (31-37) Red Cell Distribution Width 14.2 % (11.5-14.5) Platelet Count 106 x10^3/uL (140-400) Neutrophils (%) (Auto) 52 % (31-73) Lymphocytes (%) (Auto) 33 % (24-48) Monocytes (%) (Auto) 13 % (0-9) Eosinophils (%) (Auto) 2 % (0-3) Basophils (%) (Auto) 0 % (0-3) Neutrophils # (Auto) 1.9 x10^3uL (1.8-7.7) Lymphocytes # (Auto) 1.2 x10^3/uL (1.0-4.8) Monocytes # (Auto) 0.5 x10^3/uL (0.0-1.1) Eosinophils # (Auto) 0.1 x10^3/uL (0.0-0.7) Basophils # (Auto) 0.0 x10^3/uL (0.0-0.2) Magnesium Level 1.9 mg/dL (1.8-2.4) Medications Current Medications Sotalol HCl (Betapace) 120 mg BID PO Last administered on 10/30/16t 08:22; Start 10/28/16 at 09:00 Oxycodone/ Acetaminophen (Percocet 10/325) 1.5 tab DAILY@0700,1100,1700 PO ; Start 10/28/16 at 17:00; Stop 10/28/16 at 17:00; Status DC Oxycodone/ Acetaminophen (Percocet 10/325) 1.5 tab DAILYBFRLUN PO ; Start at 11:30; Status UNV Oxycodone/ Acetaminophen (Percocet 10/325) 1 tab DAILY@0300,1600 PO Last administered on 10/30/16 02:57; Start 10/28/16 at 16:00 Oxycodone/ Acetaminophen (Percocet 10/325) 1.5 tab DAILYWSUP PO ; Start 10/28/16 at 17:00; Status UNV Oxycodone/ Acetaminophen (Percocet 10/325) 1 tab DAILY PO ; Start 10/29/16 at 03: 00; Status UNV Oxycodone/ Acetaminophen (Percocet 10/325) 1.5 tab DAILY@0700,1100,1700 PO Last administered on 10/28/16 11:33; Start 10/28/16 at 11:00; Stop 10/28/16 at 16: 17; Status DC Allopurinol (Zyloprim) 300 mg DAILY PO Last administered on 10/29/16 08:07; Start 10/29/16 at 09:00 Alprazolam (Xanax) 0.5 mg PRN Q8HRS PRN PO ANXIETY / AGITATION Last administered on 10/29/16 16:15; Start 10/28/16 at 11:45 Pantoprazole Sodium (Protonix) 40 mg DAILYAC PO Last administered on 10/30/16 08:22; Start 10/29/16 at 07:30 Rivaroxaban (Xarelto) 20 mg DAILY PO Last administered on 10/30/16 08:21; Start 10/29/16 at 09:00 Lorazepam (Ativan) 4 mg PRN Q1HR PRN PO For CIWA 8-14; Start 10/28/16 at 15:00 Lorazepam (Ativan) 8 mg PRN Q1HR PRN PO For CIWA 15 or greater; Start 10/28/16 at 15:00 Oxycodone/ Acetaminophen (Percocet 10/325) 1.5 tab DAILY@0700,1100,2000 PO Last administered on 10/30/16 06:55; Start 10/28/16 at 20:00 Midazolam HCl (Versed) 5 mg PRN Q12HR PRN IV cardioversion in am Last administered on 10/30/16 09:30; Start 10/29/16 at 18:15 Fentanyl Citrate (Fentanyl 2ml Vial) 100 mcg 1X ONCE IV Last administered on 09:20; Start 10/30/16 at 08:15; Stop 10/30/16 at 08:16; Status DC Fentanyl Citrate (Fentanyl 2ml Vial) 150 mcg 1X ONCE IV Last administered on 10:20; Start 10/30/16 at 10:25; Stop 10/30/16 at 10:26; Status DC Midazolam HCl (Versed) 1 mg 1X ONCE IV ; Start 10/30/16 at 10:25; Stop 10/30/16 at 10:25; Status DC Midazolam HCl (Versed) 1 mg 1X ONCE IV Last administered on 10/30/16 10:19; Start 10/30/16 at 10:25; Stop 10/30/16 at 10:26; Status DC Active Scripts Active Reported Coreg (Carvedilol) 12.5 Mg Tablet 1 Tab PO BID Ranitidine Hcl 150 Mg Capsule 150 Mg PO BID Percocet 10-325 Mg Tablet (Oxycodone Hcl/Acetaminophen) 1 Each Tablet 1 Tab PO PRN Q8HRS PRN Indomethacin 50 Mg Capsule 50 Mg PO PRN DAILY PRN Alprazolam 0.5 Mg Tablet 0.5 Mg PO PRN Q8HRS PRN Xarelto (Rivaroxaban) 20 Mg Tablet 20 Mg PO DAILY Narcan (Naloxone HCl) [address] 4 Mg NS Allopurinol 300 Mg Tablet 1 Tab PO DAILY Vitals/I & O Vital Sign - Last 24 Hours 10/29/16 10/29/16 10/29/16 10/29/16 13:17 13:53 14:44 15:51 Pulse 75 71 74 68 Resp 18 18 18 B/P (MAP) 121/86 (98) 119/83 (95) 146/88 (107) 145/92 (109) Pulse Ox 98 96 100 98 O2 Delivery Room Air Room Air Room Air 10/29/16 10/29/16 10/29/16 10/29/16 17:03 17:44 18:36 19:36 Temp 97.8 Pulse 76 87 76 72 Resp 18 18 18 24 B/P (MAP) 142/86 (104) 127/79 (95) 140/91 (107) 155/95 (115) Pulse Ox 97 98 98 98 O2 Delivery Room Air Room Air Room Air 10/29/16 10/29/16 10/29/16 10/29/16 21:03 21:22 21:36 22:42 Pulse 76 76 72 74 Resp 21 16 22 B/P (MAP) 148/91 (110) 148/91 154/100 (118) 146/100 (115) Pulse Ox 97 97 100 O2 Delivery Room Air Room Air Room Air 10/29/16 10/30/16 10/30/16 10/30/16 23:43 00:42 01:47 02:30 Pulse 84 77 65 66 Resp 13 17 17 18 B/P (MAP) 133/92 (106) 150/96 (114) 146/95 (112) 160/107 (124) Pulse Ox 98 97 98 98 O2 Delivery Room Air Room Air Room Air Room Air 10/30/16 10/30/16 10/30/16 10/30/16 03:42 04:27 04:51 05:42 Temp 97.5 Pulse 77 69 75 Resp 19 21 18 B/P (MAP) 151/92 (111) 153/94 (113) 145/101 (116) Pulse Ox 98 98 96 O2 Delivery Room Air Room Air Room Air 10/30/16 10/30/16 10/30/16 10/30/16 07:36 08:22 08:50 09:00 Temp 97.6 Pulse 80 100 72 74 Resp 18 18 22 B/P (MAP) 145/93 (110) 151/100 (117) Pulse Ox 96 99 O2 Delivery Room Air Room Air Nasal Cannula O2 Flow Rate 2.0 10/30/16 10/30/16 10/30/16 10/30/16 09:09 09:15 09:20 09:20 Pulse 76 75 80 Resp 18 20 20 B/P (MAP) 159/100 (119) 154/100 (118) 157/99 (118) Pulse Ox 96 100 2 100 O2 Delivery Room Air Nasal Cannula Nasal Cannula Nasal Cannula O2 Flow Rate 2.0 2.0 10/30/16 10/30/16 10/30/16 10/30/16 09:25 09:30 09:35 09:40 Pulse 76 76 76 76 Resp 18 18 18 18 B/P (MAP) 138/101 (113) 127/97 (107) 127/92 (104) 121/89 (100) Pulse Ox 100 100 100 100 O2 Delivery Nasal Cannula Nasal Cannula Nasal Cannula Nasal Cannula O2 Flow Rate 2.0 2.0 2.0 2.0 10/30/16 10/30/16 10/30/16 10/30/16 09:45 09:50 09:50 09:55 Pulse 76 78 70 Resp 16 16 16 B/P (MAP) 131/95 (107) 134/91 (105) 149/105 (120) Pulse Ox 100 100 100 O2 Delivery Nasal Cannula Nasal Cannula Nasal Cannula Nasal Cannula O2 Flow Rate 2.0 2.0 2.0 2.0 10/30/16 10/30/16 10/30/16 10/30/16 10:17 10:20 10:20 10:36 Pulse 74 74 72 Resp 16 16 B/P (MAP) 134/90 (105) 120/87 (98) Pulse Ox 100 100 O2 Delivery Nasal Cannula Nasal Cannula Nasal Cannula Nasal Cannula O2 Flow Rate 2.0 2.0 2.0 2.0 10/30/16 10/30/16 10/30/16 10:37 10:39 10:44 Pulse 76 80 Resp 20 B/P (MAP) 124/97 (106) Pulse Ox 99 O2 Delivery Nasal Cannula Nasal Cannula O2 Flow Rate 2.0 2.0 Intake and Output 10/29/16 10/29/16 10/30/16 15:00 23:00 07:00 Intake Total 840 ml 200 ml 75 ml Output Total 800 ml 1000 ml 1200 ml Balance 40 ml -800 ml -1125 ml SUNNY VICTORIA Jr, MD Oct 30, 2016 13:17
--- NOTE | 2016-10-30 13:48 | OP ---
DATE OF SURGERY: 10/30/2016 DIRECT CURRENT CARDIOVERSION REPORT AGE: 66. SEX: Male. INDICATION: Persistent atrial fibrillation. ORDERING PROVIDER: Sunny Vogel MD PRIMARY PROVIDER: Roddy Eisenberg MD. INDICATIONS: The patient is a 66-year-old male with a history of persistent atrial fibrillation. He had previously been taking Multaq and underwent a cardioversion, which was initially successful. However, the patient then developed recurrent atrial fibrillation. Therefore, his Multaq was stopped and he was admitted to the hospital 2 days ago to initiate therapy with sotalol. After 5 doses of sotalol, he remained in atrial fibrillation. Therefore, we elected to proceed with direct current cardioversion. PROCEDURE: After informed consent and in the fasting state, IV conscious sedation was administered. The patient received 5 mg of intravenous Versed and 300 mcg of intravenous fentanyl. He was quite sedated at that time. I subsequently, performed direct current cardioversion with one synchronized biphasic shock at 200 joules with successful cardioversion of atrial fibrillation to sinus rhythm. However, within 1 minute, the patient converted back to atrial fibrillation. No additional attempt at cardioversion was performed at that time. IMPRESSION: Status post unsuccessful direct current cardioversion for persistent atrial fibrillation with one synchronized biphasic shock at 200 joules. This did convert the patient to sinus rhythm but within less than 1 minute, the patient reverted back to atrial fibrillation. SUNNY VOGEL MD DR: LEIA/clare JOB#: [id number] / [id number] RODDY Haley MTDCecy
== END 2016-10-30 13:45 | disposition home or self-care (01) | DRG 309 ==
LOC: EEVIPCON 08:21 → ICU 08:21
PROVIDERS: ADMIT Family Medicine; ATTEND Family Medicine
PROC: 5A2204Z Restoration of Cardiac Rhythm, Single (ICD-10-PCS; principal; 2016-10-30)
DX: I48.1 Persistent atrial fibrillation (principal); R17 Unspecified jaundice; G89.29 Other chronic pain; I10 Essential (primary) hypertension; I42.9 Cardiomyopathy, unspecified; I48.0 Paroxysmal atrial fibrillation; D69.6 Thrombocytopenia, unspecified; M54.9 Dorsalgia, unspecified; E66.9 Obesity, unspecified; I35.1 Nonrheumatic aortic (valve) insufficiency; I71.2 Thoracic aortic aneurysm, without rupture; Z79.01 Long term (current) use of anticoagulants; Z79.891 Long term (current) use of opiate analgesic; Z68.31 Body mass index [BMI] 31.0-31.9, adult; Z88.0 Allergy status to penicillin; Z82.3 Family history of stroke; Z82.49 Family history of ischemic heart disease and other diseases of the circulatory system; Z86.718 Personal history of other venous thrombosis and embolism; Z83.3 Family history of diabetes mellitus; Z87.891 Personal history of nicotine dependence
CPT/HCPCS: 36415; 80048; 80053; 82553; 83735; 84484; 85027; 87641; J2250; J3010

== ENCOUNTER → 2020-02-29 | Outpatient (CLI) | payer BC, MEDICARE, OTHER ==
[2016-10-30 10:44] VITALS: BP 124/97
[~2020-02-29] MED LIST: ALLO300T PO; ALPR0.5T6 PO; CARV12.5 PO; CARV12.547 PO; INDO50CA15 PO; NALO4SPR NS; OMEP20TA8 PO; OXYC1TAB22 PO; RANI150C PO; RIVA20TA2 PO
--- NOTE | 2020-02-29 15:05 | RAD ---
EXAMINATION: DIGITAL DIAGNOSTIC BILATERAL History: Reason: DEEPAK BREAST LUMPS / Spl. Instructions: / History: Comparison: Palpable abnormality in the left subareolar region after initiation of a new cholesterol lowering medicine. Technique: Bilateral digital diagnostic mammogram views were obtained. CAD was utilized. 3-D tomosynthesis images were acquired. Findings: Breast Tissue Density B : There are scattered areas of fibroglandular density. There are no dominant masses, suspicious microcalcifications, or architectural distortion. Left subareolar parenchymal density noted compatible with gynecomastia IMPRESSION: Left gynecomastia. No suspicious finding. Clinical management recommended. BI-RADS category 1: Negative. The images were reviewed with computer aided detection. Patient information is entered into the reminder system with a target due date for the next screening mammogram. Mammography is the most sensitive method for finding small breast cancers, but it does not detect them all and is not a substitute for careful clinical examination. A negative mammogram does not negate a clinically suspicious finding and should not result in delay in biopsying a clinically suspicious abnormality. "Our facility is accredited by the [employer] Mammography Program." Electronically signed by: Kojo Ortiz MD (02/29/2020 3:02 PM) [facility]
== END ==
LOC: MAMMO 13:25
PROVIDERS: ATTEND Internal Medicine Geriatric Medicine
DX: N64.4 Mastodynia (principal)
CPT/HCPCS: 77066